=== PATIENT | female | born 1995 | race Caucasian/White ===

== ENCOUNTER 2018-01-30 13:50 | Emergency (ER) | payer BC ==
[~2018-01-30] VITALS: Ht 175.3 cm; Wt 98.3 kg
[2018-01-30 13:55] VITALS: BP 155/88; PULSE 120; TEMP 98.9
== END 2018-01-30 15:35 | disposition home or self-care (01) ==
LOC: COL.ER 13:50
DX: S01.112A Laceration without foreign body of left eyelid and periocular area, initial encounter (principal); Z88.1 Allergy status to other antibiotic agents; W50.0XXA Accidental hit or strike by another person, initial encounter; Y93.68 Activity, volleyball (beach) (court); Y92.830 Public park as the place of occurrence of the external cause

== ENCOUNTER → 2018-02-04 | Emergency (ER) | payer BC ==
[2018-02-04 11:56] VITALS: BP 133/69; PULSE 102; TEMP 98.3
== END ==
LOC: COL.ER 11:50
DX: S01.112D Laceration without foreign body of left eyelid and periocular area, subsequent encounter (principal); X58.XXXD Exposure to other specified factors, subsequent encounter